=== PATIENT | female | born 1970 | race American Indian/Alaskan Native ===

== ENCOUNTER 2016-12-29 15:57 | Emergency (ER) | payer MEDICAID ==
[2016-12-29] MEDS ORDERED: PEPCID PO ONE (20:22)
[2016-12-29] MEDS ORDERED: DECADRON IM ONE (20:22)
[2016-12-29] MEDS ORDERED: BENADRYL PO ONE (20:22)
--- NOTE | 2016-12-29 22:22 | Emergency Department Report ---
Entered by CHRISSIE SMITH, acting as scribe for DEIDRA FONG PA. ED Rash HPI - HPI Chief Complaint: Skin Rash Stated Complaint: POSS REACTION FACIAL SWELLING/LIPS SWELLING Time Seen by Provider: 12/29/16 20:21 Duration: 2 Days Location: Head, Upper Extremities (bilateral arms) Suspected Cause: Unknown Rash Symptoms: Yes Itching, Yes Facial Swelling (mild swelling around outer lips ), No Tongue/Oral Swelling, No Breathing Difficulties, No Choking Sensation, No Wheezing/Dyspnea, No Peeling, No Blistering, No Fever, No Lightheaded, No Malaise, No Myalgias Severity: mild, moderate Other History: 46 year old female with no significant PMHx presents to the ED with c/o of 2 day skin rash. Patient reports a skin rash from applying new suntan lotion on face and bilateral arms. Patient states that she has not ate anything new or used new soap but states it could be from [employer] lotion. She took Benadryl this morning with no relief. Patient denies SOB, chest pain, fever , chills, numbness, and tingling. NKDA. ED Review of Systems ROS: Stated complaint: POSS REACTION FACIAL SWELLING/LIPS SWELLING Other details as noted in HPI Comment: All other systems reviewed and negative Constitutional: denies: chills, fever Eyes: denies: eye pain, eye discharge, vision change ENT: denies: ear pain, throat pain Respiratory: denies: cough, shortness of breath, wheezing Cardiovascular: denies: chest pain, palpitations Endocrine: denies: excessive sweating Gastrointestinal: denies: abdominal pain, nausea, diarrhea Genitourinary: denies: urgency, dysuria, discharge Musculoskeletal: denies: back pain, joint swelling, arthralgia Skin: rash (bilateral forearms), other (swelling around outer lips) Neurological: denies: headache, weakness, paresthesias Psychiatric: denies: anxiety, depression Hematological/Lymphatic: denies: easy bleeding ED Past Medical Hx - Past Medical History Previous Medical History?: No - Surgical History Past Surgical History?: No - Social History Smoking Status: Never Smoker Substance Use Type: None Rash Exam - Exam General: Vital signs noted. No distress. Alert and acting appropriately. HEENT: No Periorbital Edema, No Conjuctival Injection, No Chemosis, No Perioral Edema, No Tongue Edema, No Uvular Edema, No Compromised Airway, No Drooling Lungs: Yes Good Air Exchange, No Wheezes, No Ronchi, No Stridor, No Cough, No Labored Respirations, No Retractions, No Use of Accessory Muscles, No Other Abnormal Lung Sounds Heart: Yes Regular, No Murmur Skin: Yes Urticarial Rash (bilateral forearms), No Weeping, No Tenderness Other: Positive: Abdomen Normal, Neurologic Normal, Musculoskeletal Normal ED Course Vital Signs 12/29/16 17:12 Temperature 98.5 F Pulse Rate 66 Respiratory 16 Rate Blood Pressure 154/86 O2 Sat by Pulse 100 Oximetry ED Medical Decision Making - Medical Decision Making 46 year old female presents to ED with bilateral arm hives and hives surrounding outer borders of lips and outer cheeks. patient has been given IM steroids, benadryl and pepcid during ED visit and states she feels much better. patient will be given RX for antihistamine and topical steroids and understands and agrees to return to ED immediately if there is lip swelling, tongue swelling , difficulty breathing, wheezing, SOB or worsening symptoms. patient is stable, neurologically intact and in no acute distress. Critical care attestation.: If time is entered above; I have spent that time in minutes in the direct care of this critically ill patient, excluding procedure time. ED Disposition Clinical Impression: Allergic reaction Qualifiers: Encounter type: initial encounter Qualified Code(s): T78.40XA - Allergy, unspecified, initial encounter Disposition: DC-01 TO HOME OR SELFCARE Is pt being admited?: No Does the pt Need Aspirin: No Condition: Stable Instructions: Urticaria (ED), Allergies (ED) Additional Instructions: Do not apply steroid lotion to face. Prescriptions: Hydroxyzine HCl 25 mg PO BID #14 tablet Triamcinolone Acetonide [Triamcinolone 0.1% LOTION] 60 ml TP TID #1 lotion Referrals: PRIMARY CARE,MD [Primary Care Provider] - 3-5 Days Forms: Work/School Release Form(ED) This documentation as recorded by the SARAH corbett PEARL,accurately reflects the service I personally performed and the decisions made by ,DEIDRA FONG PA.
[2016-12-29 23:18] VITALS: BP 141/83
== END 2016-12-29 21:45 | disposition home or self-care (01) ==
LOC: ED 15:57
DX: T78.40XA Allergy, unspecified, initial encounter (principal); X58.XXXA Exposure to other specified factors, initial encounter
CPT/HCPCS: 96372; 99282; J1100